=== PATIENT | female | born 1980 | race Caucasian/White ===

== ENCOUNTER 2020-05-01 10:00 | Inpatient (IN) | payer OTHER ==
[~2020-05-01] VITALS: Ht 175.3 cm; Wt 91.6 kg
[~2020-05-01 10:00] MED LIST: ACCUNEB1.25 MG/3; FOLIC ACID0.4 MG; PRENATAL1 TAB; ZANTAC 7575 MG
[2020-05-01] MEDS ORDERED: IRON236 MG PO (11:42)
[2020-05-01] MEDS ORDERED: B12 ACTIVE1000 MCG PO (11:43)
== END 2020-05-09 09:18 | disposition home or self-care (01) | DRG 743 ==
LOC: O/R 05-06 06:00 → OB/GYN 05-06 06:00
PROVIDERS: ADMIT Obstetrics & Gynecology; ATTEND Obstetrics & Gynecology
PROC: 0UT90ZZ Resection of Uterus, Open Approach (ICD-10-PCS; principal; 2020-05-06 09:15)
DX: D25.0 Submucous leiomyoma of uterus (principal); D25.1 Intramural leiomyoma of uterus; D25.2 Subserosal leiomyoma of uterus; D64.9 Anemia, unspecified